=== PATIENT | male | born 1990 | race Caucasian/White ===

== ENCOUNTER 2018-03-06 23:29 | Emergency (ER) | payer MEDICAID, OTHER ==
[~2018-03-06] VITALS: Ht 175.3 cm; Wt 61.2 kg
--- NOTE | 2018-03-06 23:41 | NUR ---
PT BB RA WITH RA STATING "FOUND DRUNK NOT ABLE TO WALK. WAS WABBLY WHEN WE TRIED TO GET HIM UP". VSS NAD A/OX2 NOT ABLE TO SPEAK CLEARLY WITH INTENT. NO ACUTE DISTRESS NOTED AT THIS TIME. WILL CONTINUE TO MONITOR FOR ANY CHANGES DURING THE SHIFT.
--- NOTE | 2018-03-07 04:13 | NUR ---
PT OK TO DISCAHRGE HOME PER DR HOLDEN. Patient discharged to home in stable condition. Written and verbal after care instructions given. Patient verbalizes understanding of instruction.Patient is awake and alert to self, day, and place. PT ambulatory with a steady gait
[2018-03-07 04:16] VITALS: BP 125/71
== END 2018-03-07 04:18 | disposition home or self-care (01) ==
LOC: ER 23:32
DX: F10.129 Alcohol abuse with intoxication, unspecified (principal); F41.9 Anxiety disorder, unspecified; F17.200 Nicotine dependence, unspecified, uncomplicated
CPT/HCPCS: 71045-TC; A4606; Z7610

== ENCOUNTER 2022-09-08 17:19 | Emergency (ER) | payer OTHER ==
[~2022-09-08] VITALS: Ht 172.7 cm; Wt 68.0 kg
--- NOTE | 2022-09-08 17:41 | NUR ---
32 [facility] accompany [facility]
--- NOTE | 2022-09-08 18:08 | NUR ---
ESTABLISHED IV LINE LEFT WRIST , BLOOD SAMPLE OBTAINED SENT TO LAB
[2022-09-08] MEDS ORDERED: CEFTRIAXONE 500 MG VIAL ONE (18:29)
[2022-09-08] MEDS ORDERED: LIDOCAINE /MPF 1% VIAL 5 ML VIAL ONE (18:29)
[2022-09-08] MEDS: IV NS 0.9% 1,000 ML IV ONE (18:30)
[2022-09-08] MEDS: CEFTRIAXONE 500 MG VIAL IM ONE (18:30)
[2022-09-08] MEDS: ONDANSETRON HCL/PF 4 MG/2 ML VIAL IV ONE (18:31)
[2022-09-08] MEDS: METRONIDAZOLE 500 MG TABLET PO ONE (18:35)
[2022-09-08] MEDS: DOXYCYCLINE HYCLATE (100 MG) 100 MG TABLET PO ONE (18:35)
[2022-09-08] MEDS ORDERED: DOXY100C2 PO (18:37)
[2022-09-08] MEDS: IBUPROFEN 600 MG TABLET PO ONE (18:40)
[2022-09-08] MEDS ORDERED: DOXYCYCLINE HYCLATE (100 MG) 100 MG TABLET ONE (18:42)
[2022-09-08] MEDS ORDERED: ONDANSETRON HCL/PF 4 MG/2 ML VIAL ONE (18:42)
[2022-09-08] MEDS ORDERED: METRONIDAZOLE 500 MG TABLET ONE (18:43)
[2022-09-08] MEDS ORDERED: IBUPROFEN 600 MG TABLET ONE (18:43)
--- NOTE | 2022-09-08 19:10 | NUR ---
IV removed. Catheter intact and site benign. Pressure and 4x4 applied to site. No bleeding noted.
--- NOTE | 2022-09-08 19:11 | NUR ---
Cleared for booking, discharged to [employer] custody
[2022-09-08 19:14] VITALS: BP 121/78
[2022-09-08 21:18] LABS: BILIRUBIN,URINE NEGATIVE (NEGATIVE); COLOR,URINE YELLOW (YELLOW); LEUKOCYTE ESTERASE ,URINE 3+ (NEGATIVE); NITRITE, URINE NEGATIVE (NEGATIVE); PH,URINE 6.5 (5.0-8.0); PROTEIN,URINE NEGATIVE (NEGATIVE); UGLUCOSE NEGATIVE (NEGATIVE); UROBILINOGEN,URINE 0.2 EU/dL (0.2)
[2022-09-08 21:53] LABS: RBC,URINE 21-50 /HPF (0-2)
[2022-09-08 21:54] LABS: BACTERIA,URINE 3+ /HPF (None Seen); SQUAMOUS EPITHELIAL CELL,UR 0-2 /HPF (None Seen); WBC,URINE 81-100 /HPF (0-3)
== END 2022-09-08 19:15 ==
LOC: ER 17:32
DX: F15.10 Other stimulant abuse, uncomplicated (principal); N50.812 Left testicular pain; R36.9 Urethral discharge, unspecified; N34.2 Other urethritis; N45.1 Epididymitis; F41.9 Anxiety disorder, unspecified; F17.200 Nicotine dependence, unspecified, uncomplicated; Z79.899 Other long term (current) drug therapy
CPT/HCPCS: 76870-TC; 81001; 82962-TC; 87086-TC; 87491; 87591; J0696; J2405; J3490; J7030